=== PATIENT | male | born 1965 | race Caucasian/White ===

== ENCOUNTER 2016-11-07 23:16 | Emergency (ER) | payer BC ==
[2016-11-07] MEDS ORDERED: NORMAL SALINE 1,000 ML IV PRN (23:26)
[2016-11-07 23:40] LABS: Hematocrit 40.3 % (42.0-52.0); Hemoglobin 13.8 gm/dL (13.5-18.0); Mean Cell Volume 86.5 fl (78-100); Mean Corpuscular Hemoglobin 29.6 pg (27-31); Mean Corpuscular Hgb Conc 34.2 g/dl (32-36); Neutrophil # 2.5 K/mm3 (1.3-6.0); Neutrophil % 58.7 % (42-75.0); Platelet Count 179 K/mm3 (150-450); Red Blood Count 4.66 M/mm3 (4.7-6.0); Red Cell Distribution Width 12.8 % (11.5-14.0); White Blood Count 4.2 K/mm3 (4.0-10.5)
[2016-11-07 23:51] LABS: Prothrombin Time (Patient) 10.7 Seconds (9.4-11.4)
[2016-11-07 23:52] LABS: INR 1.03 INR (0.90-1.10)
[2016-11-07 23:56] LABS: Albumin * 3.3 gm/dl (3.4-5.0); Anion Gap 9.1 mmol/L (6.8-13.8); BUN/Creatinine Ratio 16.2 (9.0-21.6); Bilirubin, Total 0.3 mg/dL (0.0-1.1); Ca. Corrected For Albumin 8.1 mg/dL (8.4-10.2); Calcium * 7.9 mg/dL (7.9-10.9); Carbon Dioxide 29.2 mmol/L (24-32.6); Potassium 3.3 mmol/L (3.4-4.6); Total Protein 6.5 gm/dL (6.2-8.2)
[2016-11-08 01:10] LABS: Cocaine Ur Negative (NEGATIVE); Urine Barbiturate Negative (NEGATIVE); Urine Benzodiazepines Negative (NEGATIVE); Urine Opiates Negative (NEGATIVE); Urine PCP Negative (NEGATIVE); Urine THC Negative (NEGATIVE)
[2016-11-08 01:20] LABS: Urine Appearance Clear; Urine Bilirubin Negative (NEGATIVE); Urine Blood Negative /ul (NEGATIVE); Urine Color Yellow; Urine Ketone Negative (NEGATIVE); Urine Nitrite Negative (NEGATIVE); Urine Protein Negative (NEGATIVE); Urine Specific Gravity >=1.030 SP.GR. (1.005-1.030); Urine Urobilinogen Normal (NORMAL)
[2016-11-08 01:21] LABS: Urine Bacteria TRACE; Urine RBC None Seen /hpf (0-5); Urine WBC None Seen /hpf (0-5)
[2016-11-08] MEDS ORDERED: NORMAL SALINE 1,000 ML IV ONE (01:25)
[2016-11-08] MEDS ORDERED: POTASSIUM CHLORIDE 20 MEQ TABLET.SA PO ONE (02:33)
[2016-11-08] MEDS ORDERED: POTASSIUM CHLORIDE 20 MEQ TABLET.SA ONE (02:34)
--- NOTE | 2016-11-08 02:41 | ERNOTE ---
Medical Problem HPI - Narrative Date of Service: 11/07/16 - General Chief Complaint: General Assessment Source: family Exam Limitations: clinical condition - Immun/Allergies/Home Medications Immunizations: IMMUNIZATION HX Immunizations Up to Date Yes Allergies/Adverse Reactions: Allergies No Known Allergies Allergy (Verified 11/07/16 23:31) Home Medications: HOME MEDICATIONS Aspirin [Aspirin Enteric Coated] 325 mg PO DAILY 06/26/14 [Last Taken Unknown] Doxycycline Monohydrate 100 mg PO BID #14 tablet 08/06/16 [Last Taken Unknown] - History of Present History Narrative: The and the patient had won a certificate for a bar. The certificate allowed them both to drink as much as they wanted in two hours. Both of them took full advantage of the offer. He was able to negotiate the stairs at their house. He went into the basement and shortly after the her him fall. She observed him to be bent of the tub. The fall was not witnessed. Currently the patient does not remember falling. No previous history of seizures or methamphetamine use. On arrival to the ED no collar was used. Timing: constant Severity: severe Modifying Factors - (Improves): Present: other - nothing Modifying Factors - (Worsens): Present: other - nothing Review of Systems - Narrative Narrative: The patient was unresponsive on arrival to the ED. - Patient's Past Medical History Patient History - Medical: No pertinent hx Patient History - Cardiac/Respiratory: No pertinent hx Patient History - Cancer: No Hx of Cancer Patient History - Surgical Procedures: No surgical history Patient History - Other: None - Social History Living Situations: home - Immunizations Immunizations Up to Date: Yes Physical Exam - Physical Exam General Appearance: Present: no apparent distress, other - unresponsive Eye Exam: Normal inspection: bilateral Ears, Nose, Throat: Present: normal ENT inspection Neck: Present: normal inspection, supple Respiratory: Present: no respiratory distress Cardiovascular/Chest: Present: regular rate, rhythm Gastrointestinal/Abdominal: Present: nontender Male Genitals Exam: Present: normal genitalia Back Exam: Present: normal inspection Extremity Exam: Present: normal inspection, no edema Neurological Exam: Present: other - unresponsive to voice and sternal rub Skin Exam: Present: normal color ED Progress - Results and Orders Patient's Lab Results:: I have reviewed the patient's lab results. - Vital Signs Patient's Vital Signs:: I have reviewed the patient's vital signs. Vital Signs: Vital Signs 11/07/16 23:27 Pulse Rate 62 Respiratory 19 Rate Blood Pressure 132/74 O2 Sat by Pulse 93 Oximetry - EKG EKG: NSR EKG read: Interp. by me EKG Comments: Rate of 76 - X-Ray X-Ray #1 X-Ray: chest Interpretation: Interp. by me X-ray Comments: Unremarkable. - CT/Ultrasound CT/Ultrasound Narrative: Ct of the head and cervical spine were did not show any acute pathology. - Progress/Reassessment Chief Complaint: General Assessment Progress:: Improved Progress Note-Subjective: 11/08/16 03:04 The patient independently ambulated to the bathroom. Now sitting up talking with the . 11/08/16 03:08 It is possible that a seizure occurred, or the syncope was due to excessive ETOH use. However the patient nor the believe that they drank a significant amount. Departure - Departure Clinical Impression: Syncope and collapse, Polysubstance abuse Disposition: Home self-care Condition: Good Instructions: Finding Treatment for Addiction Print Language: Slovenian Additional Instructions: Drink two liters of water at home in the next 18 hours. Follow up with your physician next week. Referrals: Kelton Macdonald MD [Primary Care Provider] -
[2016-11-08 04:20] VITALS: BP 131/75
== END 2016-11-08 03:01 | disposition home or self-care (01) ==
LOC: ER 23:16
DX: R55 Syncope and collapse (principal); F19.10 Other psychoactive substance abuse, uncomplicated
CPT/HCPCS: 36415; 70450; 71010; 72125; 80053; 80320; 81001; 84484; 85025; 85610; 93005; 99283; G0479